=== PATIENT | female | born 1995 | race Two or more races ===

== ENCOUNTER 2018-08-05 13:10 | Emergency (ER) | payer SELFPAY ==
[~2018-08-05] VITALS: Ht 157.5 cm; Wt 81.6 kg
[~2018-08-05 13:10] MED LIST: ASCO500T11 PO; FERR325T50 PO; PREN-96 PO
[2018-08-05 14:31] LABS: Basophils # (auto) 0 uL; Calcium 9.2 mg/dL (8.5-10.1); Eosinophils # (auto) 0.2 uL; Eosinophils % (auto) 2.7 % (0.0-7.0); Lymphocytes # (auto) 2.3 uL; Mean Corpuscular Hgb Conc. 31.4 g/dL (32.0-36.0); Monocytes # (auto) 0.5 uL; Monocytes % (auto) 6.4 % (0.0-12.0); Potassium 4.3 mmol/L (3.5-5.1); Red Blood Cells 5.52 10^6/uL (4.0-5.20); White Blood Cell 7.9 10^3/uL (4.4-10.8)
[2018-08-05 14:33] LABS: Basophils % (auto) 0.2 % (0.0-2.0); Hemoglobin 12.9 g/dL (12.2-16.2); Lymphocytes % (auto) 28.7 % (10.0-50.0); Mean Corpuscular Hemoglobin 23.3 pg (28.0-32.0); Mean Corpuscular Volume 74.4 fL (80.0-100.0); Neutrophils # (auto) 4.9 uL; Nucleated Red Blood Cells % 0.3 %; Platelet Count (auto) 336 10^3/uL (140-450); Red Cell Distribution Width 16.7 % (11.8-14.3)
[2018-08-05 14:35] LABS: BUN/Creatinine Ratio 13.3; Bilirubin, Total 0.3 mg/dL (0.2-1.0); Total Protein 8.3 g/dL (6.4-8.2)
[2018-08-05 16:12] LABS: Urine Bacteria NONE SEEN /hpf (None Seen); Urine Blood Negative /uL (Negative); Urine Mucus FEW (None Seen); Urine Specific Gravity 1.009 (1.001-1.035); Urine WBC 3 /hpf (0 - 5)
[2018-08-05 16:54] VITALS: BP 127/88
== END 2018-08-05 16:57 | disposition home or self-care (01) ==
LOC: ER 13:19
DX: O20.9 Hemorrhage in early pregnancy, unspecified (principal); Z3A.12 12 weeks gestation of pregnancy
CPT/HCPCS: 36415; 76856; 80053; 81001; 84702; 85025

== ENCOUNTER 2018-12-30 18:38 | Observation (INO) | payer SELFPAY ==
[2018-12-30 20:51] LABS: Urine Bacteria FEW /hpf (None Seen); Urine Blood Negative /uL (Negative); Urine Mucus FEW (None Seen); Urine Specific Gravity 1.018 (1.001-1.035); Urine WBC 41 /hpf (0 - 5)
[2018-12-30 21:04] LABS: Alcohol, Urine < 3.0 mg/dL (0-5); Amphetamine Screen, Urine NEGATIVE (NEGATIVE); Barbiturate Scree,Urine NEGATIVE (NEGATIVE); Benzodiazephine Screen, Urine NEGATIVE (NEGATIVE); Cannabinoid Screen, Urine NEGATIVE (NEGATIVE); Cocaine Screen, Urine NEGATIVE (NEGATIVE); Opiate Scree,Urine NEGATIVE (NEGATIVE); Phencyclidine Screen, Urine NEGATIVE (NEGATIVE)
== END 2018-12-30 22:20 | disposition home or self-care (01) | DRG 833 ==
LOC: LDRP 18:38
PROVIDERS: ADMIT Obstetrics & Gynecology; ATTEND Obstetrics & Gynecology
DX: O46.91 Antepartum hemorrhage, unspecified, first trimester (principal); Z3A.01 Less than 8 weeks gestation of pregnancy
CPT/HCPCS: 36415; 59025; 76801; 80307; 81001; 81002; 84144; 84702; G0378